=== PATIENT | female | born 1995 | race Caucasian/White ===

== ENCOUNTER 2017-11-25 14:16 | Emergency (ER) | payer OTHER ==
[~2017-11-25] VITALS: Ht 157.5 cm; Wt 52.6 kg
[2017-11-25 14:32] VITALS: Ht 157.5 cm; Wt 52.6 kg
[2017-11-25 16:41] VITALS: BP 100/64
[2017-11-27 11:14] LABS: RAPID PLASMA REAGIN Non Reactive (Non Reactive)
== END 2017-11-25 16:41 | disposition home or self-care (01) ==
LOC: ED 14:16
PROVIDERS: Emergency Medicine
DX: N89.8 Other specified noninflammatory disorders of vagina (principal); R10.30 Lower abdominal pain, unspecified
CPT/HCPCS: 87491; 87591; J0696; J1885